=== PATIENT | female | born 1995 | race Caucasian/White ===

== ENCOUNTER 2017-05-29 08:49 | Emergency (ER) | payer OTHER | END 2017-05-29 12:15 | disposition home or self-care (01) | LOC: FTE 08:49 | DX: M25.561 Pain in right knee (principal); J02.9 Acute pharyngitis, unspecified; M25.562 Pain in left knee; H92.09 Otalgia, unspecified ear; R50.9 Fever, unspecified; R05 Cough | CPT/HCPCS: 71045; 73030; 73562; 99284-25 ==